=== PATIENT | female | born 1965 | race Caucasian/White ===

== ENCOUNTER 2021-11-15 14:52 | Outpatient (CLI) | payer OTHER, SELFPAY ==
--- NOTE | 2021-11-15 15:00 | CRLHL7_ITS ---
For Patients: As a result of the Century Cures Act, medical imaging exams and procedure reports are released immediately into your electronic medical record. You may view this report before your referring provider. If you have questions, please contact your health care provider. BILATERAL SCREENING MAMMOGRAM WITH COMPUTER-AIDED DETECTION AND TOMOSYNTHESIS TECHNIQUE: CC and MLO views were obtained. These mammographic images have been obtained using full-field digital technique. These mammographic images were interpreted with the benefit of computer-aided detection. Breast Tomosynthesis was used in this interpretation. COMPARISON FILM: 06/13/20, 04/04/19, 01/21/18. FINDINGS: There are scattered areas of fibroglandular density IMPRESSION: There is no radiographic evidence for malignancy. ASSESSMENT: BI-RADS Category 1: Negative RECOMMENDATION: Routine screening mammogram in 1 year. A lay language report of this examination will be provided to the patient. Marty Mcdowell M.D. Diagnostic Radiologist [email or web address] CIRA/Dictated by: Marty Mcdowell MD @ 11/18/2021 1:24:00 PM (Electronically Signed)
== END 2021-11-15 14:53 | disposition home or self-care (01) ==
LOC: MAMMO 14:55
PROVIDERS: PCP Family Medicine; Visit Provider Obstetrics & Gynecology
DX: Z12.31 Encounter for screening mammogram for malignant neoplasm of breast (principal)
CPT/HCPCS: 77063; 77067

== ENCOUNTER 2021-12-17 08:52 | Outpatient (CLI) | payer OTHER, SELFPAY ==
[2021-12-17 11:04] LABS: Cholesterol* 250 mg/dL (90-199); Glucose* 92 mg/dL (60-115); Triglycerides* 91 mg/dL (40-149)
[2021-12-17 11:05] LABS: HDL Cholesterol* 79 mg/dL (>=50); LDL Cholesterol Calculated 153 mg/dL (<100)
== END 2021-12-17 08:53 | disposition home or self-care (01) ==
PROVIDERS: PCP Family Medicine; Visit Provider Obstetrics & Gynecology
DX: E78.00 Pure hypercholesterolemia, unspecified (principal); Z13.1 Encounter for screening for diabetes mellitus
CPT/HCPCS: 80061; 82947

== ENCOUNTER 2023-10-16 08:26 | Outpatient (CLI) | payer OTHER, SELFPAY | END 2023-10-16 08:27 | disposition home or self-care (01) | PROVIDERS: PCP Family Medicine; Visit Provider Obstetrics & Gynecology | DX: E78.00 Pure hypercholesterolemia, unspecified (principal); Z13.1 Encounter for screening for diabetes mellitus | CPT/HCPCS: 80061; 82947 ==

== ENCOUNTER 2024-01-27 08:09 | Outpatient (CLI) | payer OTHER, SELFPAY ==
--- NOTE | 2024-01-27 08:15 | CRLHL7_ITS ---
For Patients: As a result of the Century Cures Act, medical imaging exams and procedure reports are released immediately into your electronic medical record. You may view this report before your referring provider. If you have questions, please contact your health care provider. BILATERAL SCREENING MAMMOGRAM WITH COMPUTER-AIDED DETECTION AND TOMOSYNTHESIS TECHNIQUE: CC and MLO views were obtained. These mammographic images have been obtained using full-field digital technique. These mammographic images were interpreted with the benefit of computer-aided detection. Breast Tomosynthesis was used in this interpretation. COMPARISON FILM: 11/15/21, 06/15/20, 06/13/20. FINDINGS: There are scattered areas of fibroglandular density IMPRESSION: There is no radiographic evidence for malignancy. ASSESSMENT: BI-RADS Category 1: Negative RECOMMENDATION: Routine screening mammogram in 1 year. A lay language report of this examination will be provided to the patient. Marty Mcdowell M.D. Diagnostic Radiologist [email or web address] CIRA/Dictated by: Marty Mcdowell MD @ 01/27/2024 10:22:00 AM (Electronically Signed)
== END 2024-01-27 08:10 | disposition home or self-care (01) ==
LOC: MAMMO 08:10
PROVIDERS: Visit Provider Obstetrics & Gynecology
DX: Z13.21 Encounter for screening for nutritional disorder (principal)
CPT/HCPCS: 77063; 77067

== ENCOUNTER 2025-01-16 09:22 | Outpatient (CLI) | payer OTHER, SELFPAY | END 2025-01-16 09:23 | disposition home or self-care (01) | PROVIDERS: Visit Provider Physician Assistant Medical | DX: R53.83 Other fatigue (principal) | CPT/HCPCS: 80053; 84443; 87086 ==